=== PATIENT | male | born 1935 | race Caucasian/White ===

== ENCOUNTER → 2016-12-11 | Outpatient (CLI) | payer MEDICARE, OTHER ==
--- NOTE | 2016-12-11 14:53 | RADRPT ---
PROCEDURE: XR Chest. CLINICAL INDICATION: Preoperative chest/cough TECHNIQUE: Chest PA and lateral COMPARISON: 12/04/2007 FINDINGS: The mediastinal structures are unremarkable. There is calcification of the thoracic aorta (consiste nt with atherosclerosis). The heart is normal in size and configuration. The pulmonary vascularity is normal. 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 No consolidation is identifi ed. The pleural spaces are unremarkable. There are senescent changes of the axial skeleton. IMPRESSION: Calcification of the thoracic aorta (consistent with atherosclerosis). 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 RPTAT: [facility] .Les Everett MD, MD Date Time Electronically viewed and signed by .Les Everett MD, on 12/11/2016 14:53 .B/
== END | disposition home or self-care (01) ==
LOC: RAD 14:15
PROVIDERS: ATTEND Family Medicine
DX: Z01.818 Encounter for other preprocedural examination (principal); R05 Cough; I70.0 Atherosclerosis of aorta
CPT/HCPCS: 71020